=== PATIENT | female | born 1960 | race Caucasian/White ===

== ENCOUNTER → 2025-05-09 15:08 | Outpatient (BNVA) | payer MEDICARE, SELFPAY | PROVIDERS: PCP Family Medicine; Visit Provider Family Medicine | DX: I10 Essential (primary) hypertension (principal); I71.20 Thoracic aortic aneurysm, without rupture, unspecified; G62.9 Polyneuropathy, unspecified; E78.00 Pure hypercholesterolemia, unspecified; R73.01 Impaired fasting glucose | CPT/HCPCS: 80053; 80061; 82607; 83036; 84439; 84443; 85025 ==

== ENCOUNTER 2025-05-18 13:54 | Outpatient (CLI) | payer MEDICARE, SELFPAY ==
--- NOTE | 2025-05-18 14:15 | CT_ITS ---
WS: [id number] LDCT LUNG CANCER SCREENING HISTORY: screening; smoker; 42pk yr TECHNIQUE: Axial imaging performed from the apices to 1 cm below the costophrenic angles. Coronal and sagittal reformats are submitted with axial MIP series. All CT scans at [facility] use at least one of these dose optimization techniques: automated exposure control; mA and/or kV adjustment per patient size (includes targeted exams where dose is matched to clinical indication); or iterative reconstruction. DLP: 95.23 mGy.cm DIvol: Mean CTDIvol: 2.10 (mGy) COMPARISON: None available. Diagnostic quality: Satisfactory. Lungs: 2 mm perifissural nodule on the RIGHT. 2 mm nodule LEFT apex, image 28 series 6. No suspicious masses. No nodules. No pneumonia. No pneumonia. Heart: Normal size heart with no pericardial effusion.. Other findings: Mild atherosclerosis aorta. Normal size pulmonary artery. No pathologic lymph nodes. Small hiatal hernia. No adrenal mass. CT/CT lung screening 71802 IMPRESSION: LUNG-RADS: 2-Benign Appearance or Behavior FOLLOW UP: 12 Month: Continue annual screening with LDCT OTHER FINDINGS (S MODIFIER): None.
== END 2025-05-18 13:55 | disposition home or self-care (01) ==
LOC: RAD 13:55
PROVIDERS: PCP Family Medicine; Visit Provider Family Medicine
DX: Z12.2 Encounter for screening for malignant neoplasm of respiratory organs (principal); F17.210 Nicotine dependence, cigarettes, uncomplicated
CPT/HCPCS: 71271

== ENCOUNTER → 2025-06-23 09:26 | Outpatient (BNVA) | payer MEDICARE, SELFPAY | PROVIDERS: PCP Family Medicine; Visit Provider Family Medicine | DX: I71.20 Thoracic aortic aneurysm, without rupture, unspecified (principal); I10 Essential (primary) hypertension; E78.00 Pure hypercholesterolemia, unspecified; Z11.59 Encounter for screening for other viral diseases; Z11.4 Encounter for screening for human immunodeficiency virus [HIV] | CPT/HCPCS: 80053; 80061; 86803; 87806 ==

== ENCOUNTER → 2025-08-04 09:58 | Outpatient (BNVA) | payer MEDICARE, SELFPAY | PROVIDERS: PCP Family Medicine; Visit Provider Nurse Practitioner | DX: R55 Syncope and collapse (principal) | CPT/HCPCS: 80053; 84439; 84443; 85025 ==

== ENCOUNTER 2025-08-09 07:21 | Outpatient (CLI) | payer MEDICARE, SELFPAY ==
--- NOTE | 2025-08-09 07:30 | CT_ITS ---
WS: [id number] CT HEAD NONCONTRAST HISTORY: syncopal episode with bowel/bladder incontinence. TECHNIQUE: Contiguous axial imaging performed through the brain. Bone and soft tissue windows. Sagittal and coronal reformats reviewed. All CT scans at [facility] use at least one of these dose optimization techniques: automated exposure control; mA and/or kV adjustment per patient size (includes targeted exams where dose is matched to clinical indication); or iterative reconstruction. DLP: 1091.18 mGy.cm COMPARISON: None available. No acute intracranial hemorrhage, midline shift or mass effect. No atrophy or prior infarcts or herniation. Tiny remote lacunar infarct adjacent to the RIGHT caudate head and the anterior limb of the internal capsule. Ventricles: Normal size with no hydrocephalus. Paranasal sinuses: Mild bilateral ethmoid air cell disease. No air-fluid levels. Mastoid air cells: Well pneumatized. Small amount of cerumen in the RIGHT external auditory canal. Calvarium and scalp: Skull is intact with no soft tissue edema or swelling. Moderate burden of the intracranial carotid arteries with calcified plaque. CT/CT head wo con* [id number] IMPRESSION: 1. No acute intracranial hemorrhage or edema. 2. No prior large territory infarct. 3. Tiny lacunar infarct anterior limb RIGHT internal capsule. 4. Moderate intracranial carotid artery calcification.
== END 2025-08-09 07:22 | disposition home or self-care (01) ==
LOC: RAD 07:25
PROVIDERS: PCP Family Medicine; Visit Provider Nurse Practitioner
DX: R55 Syncope and collapse (principal); R32 Unspecified urinary incontinence; R15.9 Full incontinence of feces; J34.89 Other specified disorders of nose and nasal sinuses; H61.21 Impacted cerumen, right ear; I65.29 Occlusion and stenosis of unspecified carotid artery
CPT/HCPCS: 70450

== ENCOUNTER 2025-08-18 07:00 | Outpatient (CLI) | payer MEDICARE, SELFPAY ==
--- NOTE | 2025-08-18 07:30 | USCV_ITS ---
Melanie Gómez Age: 65 Gender: F : 1960 Exam Date: 08/18/2025 07:14 Ordering Phys: Ashley Ramos MD Technologist: ROWAN Exam Location: [facility] [place]_ Indication: calcifications in carotids-visaulzied on CT Risk Factors: Previous Vascular Surgery: Right Brachial BP: / Left Brachial BP: / Right Left Velocity (cm/s) Spectral Plaque Velocity (cm/s) Spectral Plaque Syst/Diast Broadening Syst/Diast Broadening 64.00/ 18.70 Prox CCA 84.50 / 16.40 80.40/ 22.50 Mid CCA 59.60 / 15.80 51.40/ 16.20 Distal CCA 61.90 / 14.70 43.20/ 13.30 Prox ICA 40.90 / 12.20 77.50/ 21.00 Mid ICA 48.20 / 18.70 82.00/ 33.50 Distal ICA 73.80 / 24.30 92.30 ECA 94.70 0.80 ICA/CCA 0.70 Antegrade Vertebral Antegrade 45.30/ 10.30 cm/s 28.90/ 8.80 cm/s Tri Subclavian Tri 128.4 114.3 0 0 FINDINGS Comparison: none available. No significant elevation of systolic or diastolic velocities. Waveforms are normal. Minimal calcified plaque in the bifurcations. CONCLUSIONS Bilateral ICA stenosis less than 50%. Minimal carotid atherosclerosis. Dr. Payal Nolen DO (Electronically Signed) Final Date: 18 August 2025 07:45 S
== END 2025-08-18 07:01 | disposition home or self-care (01) ==
LOC: RAD 07:06
PROVIDERS: PCP Family Medicine; Visit Provider Family Medicine
DX: I65.23 Occlusion and stenosis of bilateral carotid arteries (principal)
CPT/HCPCS: 93880